=== PATIENT | female | born 1950 | race Caucasian/White ===

== ENCOUNTER → 2017-02-08 | Outpatient (CLI) | payer MEDICARE ==
[2017-02-08 13:01] LABS: BUN/CREATININE RATIO 18 (0-10); GAMMA GLUTAMYL TRANSPEPTIDASE 46 U/L (7-64)
== END ==
LOC: LAB 11:41
PROVIDERS: Internal Medicine Rheumatology
DX: R79.9 Abnormal finding of blood chemistry, unspecified (principal); K81.9 Cholecystitis, unspecified
CPT/HCPCS: 36415; 80053; 82977